=== PATIENT | female | born 1995 | race Caucasian/White ===

== ENCOUNTER 2023-06-19 05:18 | Inpatient (IN) | payer BC ==
[~2023-06-19 05:18] MED LIST: Oxytocin/Lactated Ringers 30 UNIT/500 ML BAG IV SCH
[2023-06-19] MEDS: Lactated Ringers 1,000 ML IV SCH (05:43)
[2023-06-19] MEDS ORDERED: diphenhydrAMINE 50 MG/ML SDV IVPUSH PRN (06:50)
[2023-06-19] MEDS ORDERED: fentaNYL 100 MCG/2 ML SDV IVPUSH PRN (06:50)
[2023-06-19] MEDS ORDERED: fentaNYL 100 MCG/2 ML SDV ONE (06:57)
[2023-06-19] MEDS ORDERED: Morphine PF 10 MG/10 ML SDV ONE (06:57)
[2023-06-19] MEDS ORDERED: Oxytocin 10 Units/1 ML SDV ONE (06:57)
[2023-06-19] MEDS ORDERED: ceFAZolin 2 GM Vial ONE (07:01)
[2023-06-19] MEDS: Terbutaline 1 MG/ML SDV SUBCUT ONE (07:03)
[2023-06-19] MEDS ORDERED: Ketorolac 30 MG/ML SDV ONE (07:09)
[2023-06-19] MEDS ORDERED: Ondansetron 4 MG/2 ML SDV ONE (07:09)
[2023-06-19] MEDS: Citric Acid/Sodium Citrate Solution 30 ML Cup PO ONE (07:16)
[2023-06-19] MEDS: Metoclopramide 10 MG/2 ML SDV IVPUSH ONE (07:16)
[2023-06-19] MEDS ORDERED: Phenylephrine 1% 10 MG/ML SDV ONE (07:45)
[2023-06-19] MEDS ORDERED: Lactated Ringers 1,000 ML ONE ×2 (07:47→08:16)
[2023-06-19] MEDS ORDERED: Naloxone 0.4 MG/ML SDV IVPUSH PRN (09:49)
[2023-06-19] MEDS ORDERED: Sodium Chloride 0.9% 10 ML Syringe FLUSH PRN (09:49)
[2023-06-19] MEDS ORDERED: Acetaminophen/oxyCODONE 325-5 MG Tab PO PRN (09:49)
[2023-06-19] MEDS: Dextrose 5%-Lactated Ringers 1,000 ML IV SCH (10:19)
[2023-06-19] MEDS: ceFAZolin 2 GM in Sodium Chloride 0.9% 50 ML IV ONE (10:31)
[2023-06-19] MEDS: Ondansetron 4 MG/2 ML SDV IVPUSH PRN ×2 (10:33→16:14)
[2023-06-19] MEDS: Scopalamine 1mg/3day Transdermal Patch TRDERM PRN (12:12)
[2023-06-19] MEDS: Ketorolac 30 MG/ML SDV IVPUSH SCH (15:07)
[2023-06-19] MEDS: Lactated Ringers 500 ML IV ONE (16:18)
[2023-06-19] MEDS: diphenhydrAMINE 50 MG/ML SDV IVPUSH PRN (17:07)
[2023-06-20 06:53] LABS: HEMATOCRIT 29.5 % (37.0-47.0); HEMOGLOBIN 9.9 gm/dl (12.0-16.0); MEAN CORPUSCULAR HEMOGLOBIN 30.5 pg (28.0-32.0); MEAN CORPUSCULAR HGB CONC 33.6 g/dl (32.0-36.0); MEAN CORPUSCULAR VOLUME 90.8 fl (83.0-99.0); MEAN PLATELET VOLUME 10.8 fl (9.4-12.3); PLATELET COUNT,PLT 195 K/mm3 (150-400); RED BLOOD CELL COUNT 3.25 M/mm3 (4.10-5.30)
[2023-06-20] MEDS: Ibuprofen 600 MG Tab PO PRN (08:53)
[2023-06-20] MEDS: Docusate Sodium 100 MG Cap PO PRN (16:08)
[2023-06-20] MEDS: Acetaminophen/oxyCODONE 325-5 MG Tab PO PRN (19:14)
== END 2023-06-21 10:55 | disposition home or self-care (01) | DRG 540 ==
LOC: JD.OB 05:18
PROVIDERS: ADMIT Obstetrics & Gynecology; ATTEND Obstetrics & Gynecology
PROC: 10D00Z1 Extraction of Products of Conception, Low, Open Approach (ICD-10-PCS; principal; 2023-06-19 08:00)
DX: O14.04 Mild to moderate pre-eclampsia, complicating childbirth (principal); O32.1XX0 Maternal care for breech presentation, not applicable or unspecified; O26.893 Other specified pregnancy related conditions, third trimester; Z37.0 Single live birth; Z3A.37 37 weeks gestation of pregnancy; Z88.8 Allergy status to other drugs, medicaments and biological substances; Z98.890 Other specified postprocedural states; Z67.11 Type A blood, Rh negative
CPT/HCPCS: 01961; 36415; 59025; 59412; 85027; 86592; 86850; 86900; 86901; 94762; A9270-GY; J0690; J1200; J1885; J2274; J2371; J2405; J2590; J2765; J3010; J3105; J7120; J7121